=== PATIENT | female | born 1975 | race Caucasian/White ===

== ENCOUNTER 2016-10-24 04:35 | Inpatient (IN) | payer BC ==
[2016-10-24] MEDS ORDERED: LORazepam 2 MG/ML INJ ONE (05:39)
[2016-10-24] MEDS ORDERED: LORazepam 2 MG/ML INJ IVP ONE (05:50)
[2016-10-24 06:03] LABS: % IMMATURE GRANULYOCYTES 0.2 % (0.0-1.1); ABSOLUTE IMMATURE GRANULOCYTES 0.01 10^3/uL (0.00-0.10); ADD DIFF? NO; ADD MORPH? NO; ADD SCAN? NO; ATYPICAL LYMPHOCYTE FLAG 0 (0-99); FRAGMENT RBC FLAG 0 (0-99); HEMATOCRIT 41.1 % (38.0-47.0); HEMOGLOBIN 14.2 g/dL (12.6-16.3); LEFT SHIFT FLG 0 (0-99); LIPEMIA HEMOLYSIS FLAG 90 (0-99); MEAN CELL HEMOGLOBIN 31.8 pg (27.9-34.1); MEAN CELL HEMOGLOBIN CONCENTR. 34.5 g/dL (32.4-36.7); MEAN CELL VOLUME 92.2 fL (81.5-99.8); MEAN PLATELET VOLUME 10.3 fL (8.7-11.7); PLATELET CLUMPS FLAG 0 (0-99); PLATELET COUNT 317 10^3/uL (150-400); RED BLOOD CELL COUNT 4.46 10^6/uL (4.18-5.33); RED CELL DISTRIBUTION WIDTH 11.7 % (11.5-15.2)
[2016-10-24 06:13] LABS: ALANINE AMINOTRANSFERASE 49 IU/L (9-52); ALBUMIN 4.5 g/dL (3.5-5.0); ALKALINE PHOSPHATASE 59 IU/L (38-126); ANION GAP 9 mEq/L (8-16); ASPARTATE AMINOTRANSFERASE 53 IU/L (14-46); BILIRUBIN,TOTAL 0.6 mg/dL (0.1-1.4); CALCIUM 9.6 mg/dL (8.5-10.4); CARBON DIOXIDE 25 mEq/l (22-31); CHLORIDE 104 mEq/L (97-110); CREATININE 0.8 mg/dL (0.6-1.0); ETHANOL SERUM < 10 mg/dL (0-10); GLOMERULAR FILTRATION RATE > 60; GLUCOSE 110 mg/dL (70-100); POTASSIUM 3.9 mEq/L (3.5-5.2); SODIUM 138 mEq/L (134-144); TOTAL PROTEIN 7.8 g/dL (6.3-8.2)
--- NOTE | 2016-10-24 06:56 | EDPHY ---
H & P Stated Complaint: FEELING SHAKY AND OFF, THINKS THYROID IS OFF, WANTS EVAL Source: Patient Exam Limitations: No limitations - Personal History Current Tetanus/Diphtheria Vaccine: Yes Current Tetanus Diphtheria and Acellular Pertussis (TDAP): Yes - Medical/Surgical History Hx Asthma: No Hx Chronic Respiratory Disease: No Hx Diabetes: No Hx Cardiac Disease: No Hx Renal Disease: No Hx Cirrhosis: No Hx Alcoholism: No Hx HIV/AIDS: No Hx Splenectomy or Spleen Trauma: No Other PMH: THYROID, BIPOLAR, MENTAL HEALTH ISSUES - Social History Smoking Status: Never smoked Time Seen by Provider: 10/24/16 05:23 HPI/ROS: HPI The patient presents by herself with a panoply of complaints. She says that she is concerned because her thyroid is not functioning properly. She recent underwent thyroid function testing by her frothing machine operator on October 17 per our records and her labs are normal. She also says that she would like her IUD removed and it has been in for the last 15 years. She asks me if I can perform a mammogram from the emergency room. She is unable to provide much further history but does say that she has not been sleeping well for the last 4 months, actually slept in a hotel last night. She normally lives in [place] with her daughter. She says she does suffer from bipolar disorder but has not been on medication for the last 2 years. She was previously on Abilify. She says that she is on paid time off from her job at [employer]. She denies any drug use and occasionally drinks a glass of wine and smokes a cigarette. REVIEW OF SYSTEMS Constitutional: No fever, no chills. Eyes: No discharge. ENT: No sore throat. Cardiovascular: No chest pain, no palpitations. Respiratory: No cough, no shortness of breath. Gastrointestinal: No abdominal pain, no vomiting. Genitourinary: No hematuria. Musculoskeletal: No back pain. Skin: No rashes. Neurological: No headache. PMHx: Hyperthyroidism, bipolar disorder Soc Hx: Lives at home with her daughter, occasional alcohol and tobacco use PHYSICAL General Appearance: Alert, no distress Eyes: Pupils equal and round no pallor or injection ENT, Mouth: Mucous membranes moist Respiratory: There are no retractions, lungs are clear to auscultation Cardiovascular: Regular rate and rhythm Gastrointestinal: Abdomen is soft and non-tender, no masses, bowel sounds normal Neurological: A&O, moves all extremities Skin: Warm and dry, no rashes Musculoskeletal: Neck is supple non tender Extremities: symmetrical, full range of motion Psychiatric: Patient is oriented X 3, she has pressured speech and is manic. (Heena Chand) Constitutional: Initial Vital Signs Temperature (C) 36.9 C 10/24/16 04:43 Heart Rate 123 H 10/24/16 04:43 Respiratory Rate 20 10/24/16 04:43 Blood Pressure 157/118 H 10/24/16 04:43 O2 Sat (%) 97 10/24/16 04:43 O2 Delivery Mode Room Air Allergies/Adverse Reactions: No Known Allergies Allergy (Unverified 10/24/16 04:48) Home Medications: Medication Instructions Recorded Unobtainable 10/24/16 Medical Decision Making Differential Diagnosis: This is a 41-year-old female with history of bipolar disorder, though not on medications, hyperthyroidism who presents from home with multiple complaints. Her history is not linear and it is difficult to figure out what exactly brought her into the emergency room. She has pressured speech and appears manic. This is concerning for a worsening of her bipolar disorder with a manic episode. Differential diagnosis includes bipolar disorder with anival, psychosis, polysubstance abuse. I placed the patient on an M1 hold. I plan to give her a dose of Ativan and check basic labs. I will omit thyroid studies as she had these done about 1 week ago and they were all normal. She will need to have a mental health evaluation I have the explained this to her. At 7:00 a.m. changes shift was performed and the case is signed out to Dr. Gill. All the patient's labs have returned and are normal. She is awaiting mental health evaluation. (Heena Chand) Other Provider: Patient's care transferred to [place] at 7:[address] Sherri Chand. The patient has a history of bipolar and is behaving in a manic fashion. During my stay she has escalated but been able to be talked down without medications. 3:00 p.m. care transferred to Dr. Yamil Oliva. The patient has been evaluated and is awaiting placement likely [address] [place] [address]. (Jt Gill) - Data Points Laboratory Results: Laboratory Results 10/24/16 05:50 10/24/16 05:50 10/24/16 10/24/16 05:50 05:25 WBC 5.75 10^3/uL (3.80-9.50) RBC 4.46 10^6/uL (4.18-5.33) Hgb 14.2 g/dL (12.6-16.3) Hct 41.1 % (38.0-47.0) MCV 92.2 fL (81.5-99.8) MCH 31.8 pg (27.9-34.1) MCHC 34.5 g/dL (32.4-36.7) RDW 11.7 % (11.5-15.2) Plt Count 317 10^3/uL (150-400) MPV 10.3 fL (8.7-11.7) Neut % (Auto) 60.3 % (39.3-74.2) Lymph % (Auto) 23.5 % (15.0-45.0) [place] % (Auto) 14.6 H % (4.5-13.0) Eos % (Auto) 0.7 % (0.6-7.6) Baso % (Auto) 0.7 % (0.3-1.7) Nucleat RBC Rel Count 0.0 % (0.0-0.2) Absolute Neuts (auto) 3.47 10^3/uL (1.70-6.50) Absolute Lymphs (auto) 1.35 10^3/uL (1.00-3.00) Absolute Monos (auto) 0.84 H 10^3/uL (0.30-0.80) Absolute Eos (auto) 0.04 10^3/uL (0.03-0.40) Absolute Basos (auto) 0.04 10^3/uL (0.02-0.10) Absolute Nucleated RBC 0.00 10^3/uL (0-0.01) Immature Gran % 0.2 % (0.0-1.1) Immature Gran # 0.01 10^3/uL (0.00-0.10) Sodium 138 mEq/L (134-144) Potassium 3.9 mEq/L (3.5-5.2) Chloride 104 mEq/L (97-110) Carbon Dioxide 25 mEq/l (22-31) Anion Gap 9 mEq/L (8-16) BUN 8 mg/dL (7-23) Creatinine 0.8 mg/dL (0.6-1.0) Estimated GFR > 60 Glucose 110 H mg/dL (70-100) Calcium 9.6 mg/dL (8.5-10.4) Total Bilirubin 0.6 mg/dL (0.1-1.4) AST 53 H IU/L (14-46) ALT 49 IU/L (9-52) Alkaline Phosphatase 59 IU/L (38-126) Total Protein 7.8 g/dL (6.3-8.2) Albumin 4.5 g/dL (3.5-5.0) Urine Opiates Screen NEGATIVE (NEGATIVE) Urine Barbiturates NEGATIVE (NEGATIVE) Ur Phencyclidine Scrn NEGATIVE (NEGATIVE) Ur Amphetamine Screen NEGATIVE (NEGATIVE) U Benzodiazepines Scrn NEGATIVE (NEGATIVE) Urine Cocaine Screen NEGATIVE (NEGATIVE) U Marijuana (THC) Screen NEGATIVE (NEGATIVE) Ethyl Alcohol < 10 mg/dL (0-10) Medications Given: Discontinued Medications Lorazepam (Ativan Injection) 1 mg IVP EDNOW ONE Stop: 10/24/16 05:51 Last Admin: 10/24/16 05:59 Dose: 1 mg Olanzapine (Zyprexa Zydis) 10 mg PO EDNOW ONE Stop: 10/24/16 10:15 Last Admin: 10/24/16 10:32 Dose: Not Given Departure - Departure Clinical Impression: Bipolar disorder Condition: Good Referrals: Liseth Moreau MD [Primary Care Provider] - As per Instructions
[2016-10-24] MEDS ORDERED: OLANZapine DISINTEGR 10 MG TAB PO ONE (10:14)
[2016-10-24] MEDS ORDERED: OLANZapine DISINTEGR 10 MG TAB ONE (10:15)
[2016-10-24] MEDS ORDERED: LORazepam 1 MG TAB PO ONE (16:17)
[2016-10-24] MEDS ORDERED: LORazepam 0.5 MG TAB PO PRN (18:45)
[2016-10-24] MEDS ORDERED: OLANZapine DISINTEGR 5 MG TAB PO PRN ×2 (18:47→21:15)
[2016-10-24] MEDS ORDERED: ACETAMINOPHEN 325 MG TAB PO PRN (18:48)
[2016-10-24] MEDS ORDERED: MAG HYDROX/AL HYDROX/SIMETH 30 ML UDCUP PO PRN ×2 (18:48→21:14)
[2016-10-24] MEDS ORDERED: MAGNESIUM HYDROXIDE 30 ML UDCUP PO PRN ×2 (18:49→21:14)
[2016-10-24] MEDS ORDERED: BACITRACIN OINTMENT 1 PACKET TP ONE (21:04)
[2016-10-24] MEDS: NICOTINE POLACRILEX 2 MG GUM B PRN (21:05)
[2016-10-24] MEDS: LORazepam 0.5 MG TAB PO PRN (21:23)
[2016-10-25] MEDS: NICOTINE POLACRILEX 2 MG GUM B PRN ×5 (05:11→23:33)
--- NOTE | 2016-10-25 07:32 | PDGENHP ---
History Information - Allergies/Home Medication List Allergies/Adverse Reactions: No Known Allergies Allergy (Unverified 10/24/16 04:48) Home Medications: NK [No Known Home Meds] 10/24/16 [Last Taken Unknown] I have personally reviewed and updated: family history, medical history, social history, surgical history - Past Medical History Additional medical history: h/o hyperthyroidism, recent labs normal - Surgical History Reports: no pertinent surgical hx - Family History Positive for: non-pertinent - Social History Smoking Status: Current every day smoker Review of Systems ROS: 10pt was reviewed & negative except for what was stated in HPI & below Physical Exam Temp Pulse Resp BP Pulse Ox 36.4 C 121 H 14 126/85 H 98 10/25/16 06:00 10/25/16 06:00 10/25/16 06:00 10/25/16 06:00 10/25/16 06:00 Constitutional: other (tearful, manic) Eyes: PERRL Ears, Nose, Mouth, Throat: moist mucous membranes Cardiovascular: regular rate and rhythym Respiratory: no respiratory distress, clear to auscultation Gastrointestinal: normoactive bowel sounds, soft, non-tender abdomen Skin: warm Neurologic: AAOx3 Psychiatric: anxious, poor judgement Lab Data & Imaging Review 10/24/16 05:50 10/24/16 05:50 WBC 5.75 10^3/uL (3.80-9.50) 10/24/16 05:50 RBC 4.46 10^6/uL (4.18-5.33) 10/24/16 05:50 Hgb 14.2 g/dL (12.6-16.3) 10/24/16 05:50 Hct 41.1 % (38.0-47.0) 10/24/16 05:50 MCV 92.2 fL (81.5-99.8) 10/24/16 05:50 MCH 31.8 pg (27.9-34.1) 10/24/16 05:50 MCHC 34.5 g/dL (32.4-36.7) 10/24/16 05:50 RDW 11.7 % (11.5-15.2) 10/24/16 05:50 Plt Count 317 10^3/uL (150-400) 10/24/16 05:50 MPV 10.3 fL (8.7-11.7) 10/24/16 05:50 Neut % (Auto) 60.3 % (39.3-74.2) 10/24/16 05:50 Lymph % (Auto) 23.5 % (15.0-45.0) 10/24/16 05:50 [place] % (Auto) 14.6 % (4.5-13.0) H 10/24/16 05:50 Eos % (Auto) 0.7 % (0.6-7.6) 10/24/16 05:50 Baso % (Auto) 0.7 % (0.3-1.7) 10/24/16 05:50 Nucleat RBC Rel Count 0.0 % (0.0-0.2) 10/24/16 05:50 Absolute Neuts (auto) 3.47 10^3/uL (1.70-6.50) 10/24/16 05:50 Absolute Lymphs (auto) 1.35 10^3/uL (1.00-3.00) 10/24/16 05:50 Absolute Monos (auto) 0.84 10^3/uL (0.30-0.80) H 10/24/16 05:50 Absolute Eos (auto) 0.04 10^3/uL (0.03-0.40) 10/24/16 05:50 Absolute Basos (auto) 0.04 10^3/uL (0.02-0.10) 10/24/16 05:50 Absolute Nucleated RBC 0.00 10^3/uL (0-0.01) 10/24/16 05:50 Immature Gran % 0.2 % (0.0-1.1) 10/24/16 05:50 Immature Gran # 0.01 10^3/uL (0.00-0.10) 10/24/16 05:50 Sodium 138 mEq/L (134-144) 10/24/16 05:50 Potassium 3.9 mEq/L (3.5-5.2) 10/24/16 05:50 Chloride 104 mEq/L (97-110) 10/24/16 05:50 Carbon Dioxide 25 mEq/l (22-31) 10/24/16 05:50 Anion Gap 9 mEq/L (8-16) 10/24/16 05:50 BUN 8 mg/dL (7-23) 10/24/16 05:50 Creatinine 0.8 mg/dL (0.6-1.0) 10/24/16 05:50 Estimated GFR > 60 10/24/16 05:50 Glucose 110 mg/dL (70-100) H 10/24/16 05:50 Calcium 9.6 mg/dL (8.5-10.4) 10/24/16 05:50 Total Bilirubin 0.6 mg/dL (0.1-1.4) 10/24/16 05:50 AST 53 IU/L (14-46) H 10/24/16 05:50 ALT 49 IU/L (9-52) 10/24/16 05:50 Alkaline Phosphatase 59 IU/L (38-126) 10/24/16 05:50 Total Protein 7.8 g/dL (6.3-8.2) 10/24/16 05:50 Albumin 4.5 g/dL (3.5-5.0) 10/24/16 05:50 TSH 0.863 uIU/mL (0.465-4.680) 10/24/16 05:50 Free T4 1.66 ng/dL (0.59-2.19) 10/24/16 05:50 Beta HCG, Quant < 2.39 mIU/mL (0-4.83) 10/24/16 05:50 Urine Opiates Screen NEGATIVE (NEGATIVE) 10/24/16 05:25 Urine Barbiturates NEGATIVE (NEGATIVE) 10/24/16 05:25 Ur Phencyclidine Scrn NEGATIVE (NEGATIVE) 10/24/16 05:25 Ur Amphetamine Screen NEGATIVE (NEGATIVE) 10/24/16 05:25 U Benzodiazepines Scrn NEGATIVE (NEGATIVE) 10/24/16 05:25 Urine Cocaine Screen NEGATIVE (NEGATIVE) 10/24/16 05:25 U Marijuana (THC) Screen NEGATIVE (NEGATIVE) 10/24/16 05:25 Ethyl Alcohol < 10 mg/dL (0-10) 10/24/16 05:50 Assessment & Plan Assessment: Bipolar disorder (Acute) Tobacco abuse Hyperthyroidism Presence of IUD Admitted to [facility] due to decompensated bipolar with acute anival. Further med management per psych team. Reviewed recent thyroid labs, these are normal. Nicotine patch for tobacco abuse. Ok to use exercise bike 30-60 minutes per day. Pt to have outpt PCP f/u for IUD removal and control planning.
[2016-10-25] MEDS ORDERED: BACITRACIN OINTMENT 1 PACKET TP ONE (09:29)
[2016-10-25] MEDS: ACETAMINOPHEN 325 MG TAB PO PRN (11:02)
[2016-10-25] MEDS: LORazepam 0.5 MG TAB PO PRN ×2 (18:47→23:59)
--- NOTE | 2016-10-25 19:37 | SOAPPROG ---
SOAP Progress Note Assessment/Plan: Assessment: 41yo CF with no prior psych hospitalization, except one past psych eval she reports in ED 4 yrs ago and released but rxd lamictal and abilify, noncompliant with any psych treatment thereafter, presented to ED c/o thyroid problems and requested IUD removal. noted to be manic and was placed on M-1 hold. Not sleeping much over past week, pressured, labile, no SI/HI. Had a presentation on 10/17 and she was up all night preparing, then took PTO from job due to feeling unable to function at work related to poor sleep, stress, irritability, anxiety. Has been very irritable with low tolerance for coworkers and their apparent contentment with mediocrity, went snowboarding to "blow off steam", then checked into a hotel to get a massage, resumed smoking cigarettes and has been drinking 2 glasses wine nightly recently (denies hx of w/d sxs or dependence), and notes she cries very easily and has difficutly controlling her emotions. Kept focusing on hyperthyroidism being the reason for her mood instability, despite nml TSH. "God gave me hyperthyroidism"...helps her feel "emotions, passions, love". Frustrated that she will miss endocrine appt bc here. Does not feel she needs to be in hospital. Has a daughter with whom she shares custody with dtr's bio father. +fhx BMD- uncle. mse: casually dressed, good eye contact, incr rate speech, mood frustrated, affect labile- ranging from irritable to easily tearful, thoughts rambling, needing freq redirection, and at times seemed grandiose "born a millionaire", "genius", denied AH/VH or any SI/HI. insight poor, jdgmt impaired, A/Ox3 dx: BMD manic, acute r/o etoh use d/o hx hyperthyroidism per pt Plan: cont on M-1 declines offer of any meds, doesn't feel she needs to be here prn ativan for any anxiety or w/d vs qs x24hr zyprexa 5mg prn admission dictation to follow Objective: Vital Signs Temp Pulse Resp BP Pulse Ox 36.4 C 121 H 14 126/85 H 98 10/25/16 06:00 10/25/16 06:00 10/25/16 06:00 10/25/16 06:00 10/25/16 06:00 - Time Spent With Patient Time Spent With Patient: 50 min - Pending Discharge Pending Discharge Within 24 Hours: No Pending Discharge Within 48 Hours: No ICD10 Worksheet Patient Problems: Problems Problem Status Diagnosed Bipolar disorder Acute
[2016-10-25] MEDS: LITHIUM CARBONATE 300 MG TAB PO SCH (21:43)
[2016-10-25] MEDS: MELATONIN 3 MG TAB PO PRN (21:43)
[2016-10-26] MEDS: ACETAMINOPHEN 325 MG TAB PO PRN ×4 (09:41→23:42)
[2016-10-26] MEDS: NICOTINE POLACRILEX 2 MG GUM B PRN ×3 (09:41→20:14)
--- NOTE | 2016-10-26 11:10 | SOAPPROG ---
SOAP Progress Note Assessment/Plan: Assessment: 41yo with history of BMD presenting with manic symptoms of affective lability, decr sleep, irritability, impulsive behaviors, impaired/poor judgment and insight, poor sleep Plan: cont [place] 300mg qhs, started last HS. refuses increase. cont prn ativan and prn zyprexa 5mg. not taking. placed on STC *Of note, at end of day on 10/25, pt agreed to try lithium, "my uncle has severe bipolar and takes that", "and every time I go in to see a doctor, I keep asking them to check my lithium level and they keep telling me that's not possible and no one ever does!" Upset she couldn't attend her muslim at 11am 10/26/16 16:12 per staff: pt continues labile. denied med s/e to low dose lithium. feels "it helps" but doesn't want any incr. wants to leave at 6am tomorrow when M-1 expires casually dressed, good eye contact, incr rate speech, interrupts but not pressured, +labile, easily tearful, argumentative about reason for hospitalization, insisting she had just needed more days off from work and sleep , and only came to ED to get an IUD removed and get thyroid checked ( also requested mammogram per ED note). no idea why psychiatrically admitted, "what's wrong with crying". no ah/vh or any si/hi Objective: Vital Signs Temp Pulse Resp BP Pulse Ox 36.6 C 121 H 14 117/78 98 10/26/16 06:00 10/26/16 06:00 10/26/16 06:00 10/26/16 06:00 10/26/16 06:00 ICD10 Worksheet Patient Problems: Problems Problem Status Diagnosed Bipolar disorder Acute
[2016-10-26] MEDS: MELATONIN 3 MG TAB PO PRN (19:10)
[2016-10-26] MEDS: LITHIUM CARBONATE 300 MG TAB PO SCH (19:10)
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
[2016-10-27] MEDS: LORazepam 0.5 MG TAB PO PRN (03:22)
[2016-10-27] MEDS: MELATONIN 3 MG TAB PO PRN ×2 (04:36→19:30)
[2016-10-27] MEDS: ACETAMINOPHEN 325 MG TAB PO PRN ×3 (09:18→19:00)
[2016-10-27] MEDS: NICOTINE POLACRILEX 2 MG GUM B PRN ×5 (11:09→23:10)
--- NOTE | 2016-10-27 15:57 | SOAPPROG ---
SOAP Progress Note Assessment/Plan: Assessment: Plan: 10/27/16 15:58 Improving. I agree with the STC at this point due to erratic behaviors, continued poor insight and ambivalence about treatment. She is agreeable to increasing lithium which is good. I reviewed with pt the criteria for releasing the STC including compliance with treatment, stabilization of sleep and mood and improved insight into illness. Subjective: Pt seen, discussed with staff, chart reviewed. Noted to be labile, irritable. Slept better last night, five hours. Tolerating lithium well. Agreeable to increasing to 600mg after thorough review of standard dosing, levels, etc. Objective: Vital Signs Temp Pulse Resp BP Pulse Ox 36.3 C 92 16 134/78 H 98 10/27/16 09:29 10/27/16 09:29 10/27/16 00:51 10/27/16 09:29 10/27/16 09:29 MSE: Calm, coop. Affect is labile, irritable at times, crying or laughing at others. Mood is "fine, and pissed, and sad." TP tangential at times. TC reveals no overt psychosis, though may be a bit grandiose - refers to herself as a genius several times. - Time Spent With Patient Time Spent With Patient: 35" - Pending Discharge Pending Discharge Within 24 Hours: No Pending Discharge Within 48 Hours: No ICD10 Worksheet Patient Problems: Problems Problem Status Diagnosed Bipolar disorder Acute
[2016-10-27] MEDS: LITHIUM CARBONATE 300 MG TAB PO SCH (19:30)
[2016-10-28] MEDS: ACETAMINOPHEN 325 MG TAB PO PRN ×3 (01:52→23:25)
[2016-10-28] MEDS ORDERED: LITHIUM CARBONATE 300 MG CAP PO ONE (10:19)
--- NOTE | 2016-10-28 12:11 | SOAPPROG ---
SOAP Progress Note Assessment/Plan: Assessment: Plan: 10/27/16 15:58 Improving. I agree with the STC at this point due to erratic behaviors, continued poor insight and ambivalence about treatment. She is agreeable to increasing lithium which is good. I reviewed with pt the criteria for releasing the STC including compliance with treatment, stabilization of sleep and mood and improved insight into illness. 10/28/16 12:10 Remains labile. Insight is improving but remains marginal. Will CCM. Subjective: Pt seen, discussed with staff. Reports feeling "just fine." Tearful, irritable. Insists on d/c today to take care of her daughter. Agreeable to continuing lithium 600mg. Objective: Vital Signs Temp Pulse Resp BP Pulse Ox 36.6 C 91 13 157/97 H 95 10/28/16 09:16 10/28/16 09:16 10/28/16 00:30 10/28/16 09:16 10/28/16 09:16 - Time Spent With Patient Time Spent With Patient: 25" - Pending Discharge Pending Discharge Within 24 Hours: No Pending Discharge Within 48 Hours: No ICD10 Worksheet Patient Problems: Problems Problem Status Onset Bipolar disorder Acute
[2016-10-28] MEDS: NICOTINE POLACRILEX 2 MG GUM B PRN ×2 (13:45→23:25)
[2016-10-28] MEDS: MELATONIN 3 MG TAB PO PRN (20:20)
[2016-10-28] MEDS: LITHIUM CARBONATE 300 MG TAB PO SCH (20:20)
[2016-10-29] MEDS: LORazepam 0.5 MG TAB PO PRN (01:36)
[2016-10-29] MEDS: NICOTINE POLACRILEX 2 MG GUM B PRN ×2 (10:01→13:32)
[2016-10-29] MEDS: ACETAMINOPHEN 325 MG TAB PO PRN (13:32)
[2016-10-29] MEDS ORDERED: ZOLPIDEM TARTRATE 5 MG TAB PO PRN (14:18)
--- NOTE | 2016-10-29 15:48 | SOAPPROG ---
SOAP Progress Note Assessment/Plan: Assessment: Plan: 10/27/16 15:58 Improving. I agree with the STC at this point due to erratic behaviors, continued poor insight and ambivalence about treatment. She is agreeable to increasing lithium which is good. I reviewed with pt the criteria for releasing the STC including compliance with treatment, stabilization of sleep and mood and improved insight into illness. 10/28/16 12:10 Remains labile. Insight is improving but remains marginal. Will CCM. 10/29/16 15:49 Remains manic though improving slowly. Will CCM. [place] level in a.m. Subjective: Pt seen, discussed with staff. Reports feeling "just fine and ready to go." Insistent on d/c today. She states she can return in the morning at 0600 for her blood draw. She remains irritable. Staff sees her as improved with better insight, but she becomes very angry with me, threatening to germaine me because her only problem is "hyperthyroidism." She has the pt educational materials re: lithium and was fixated on lithium causing hyperthyroidism, even when I showed her that it said hypothyroidism. I told her that she continues to be labile and irritable and would be at risk for further behavioral issues if d/c'd at this point. Objective: Vital Signs Temp Pulse Resp BP Pulse Ox 36.6 C 95 16 142/81 H 99 10/29/16 08:00 10/29/16 08:00 10/29/16 08:00 10/29/16 08:00 10/29/16 04:29 MSE: Irritable/hostile. Affect is o/w constricted, stable. Mood is "terrible because I'm here." TP linear. TC reveals no psychosis, though continued poor reality testing. - Time Spent With Patient Time Spent With Patient: 25" ICD10 Worksheet Patient Problems: Problems Problem Status Onset Bipolar disorder Acute
[2016-10-29] MEDS: LITHIUM CARBONATE 300 MG TAB PO SCH (17:27)
[2016-10-29] MEDS: MELATONIN 3 MG TAB PO PRN (22:56)
[2016-10-30] MEDS: NICOTINE POLACRILEX 2 MG GUM B PRN ×2 (01:54→07:13)
[2016-10-30 09:13] LABS: LITHIUM 0.3 mEq/L (0.6-1.2)
[2016-10-30 11:08] VITALS: BP 165/100; PULSE 95; RESP 14; TEMP 98.6; O2SAT 99
== END 2016-10-30 11:30 | disposition home or self-care (01) | DRG 885 ==
LOC: BBEH 17:45
PROVIDERS: ADMIT Psychiatry & Neurology Behavioral Neurology & Neuropsychiatry; ATTEND Psychiatry & Neurology Behavioral Neurology & Neuropsychiatry
DX: F31.10 Bipolar disorder, current episode manic without psychotic features, unspecified (principal)
CPT/HCPCS: 80305; 96374; G0480